=== PATIENT | female | born 2000 | race Caucasian/White ===

== ENCOUNTER 2019-03-06 11:54 | Emergency (ER) | payer OTHER ==
--- NOTE | 2019-03-06 12:19 | ED ---
Complex/Multi-Sys Presentation - HPI Summary HPI Summary: Patient is a 18 y/o F presenting to ED with complaints of left anterior chest pain, headaches, temporary blindness, dizziness, vomiting, SOB. Chest pain is characterized as sharp and onset this morning. She states that the chest pain has dropped in severity since onset, patient rates current chest pain severity 4 /10. Deep breaths aggravate chest pain. She denies previous episodes of chest pain. She also reports PMHx of migraines and TBI at age 11. She states that she has been having 5-10 minute episodes of intense headaches in addition to temporary blindness, dizziness, and vomiting. She states that her migraine episodes have been more intense and shorter than previous episodes and also notes that she has not previously had vomiting with migraines. PETERSON severity earlier today is rated 9/10, at present 5/10. Patient states that she has tried multiple medications for her migraines but states that the side effects were too severe and as such she does not take any medications for migraines. She reports that last Head CT was at age 11. She reports no blindness at present. LNMP was 02/16/19, patient notes that she takes control Nisa. No PSHx, no smoking cigarettes, no drug usage, no alcohol usage, no FMHx of diabetes. She declines medications for migraines, states that she only wants to be tested and treated for her cardiac issues. Home medications and allergies are reviewed. Patient is present with male agency legal counsel. - History Of Current Complaint Chief Complaint: EDDizziness Time Seen by Provider: 03/06/19 12:01 Hx Obtained From: Patient Onset/Duration: Lasting Hours - chest pain onset this morning, Still Present - chest pain, headache, Resolved - blindness Timing: Intermittent, Lasting: - episodes of PETERSON last 5-10 minutes, Hours - chest pain onset this morning Severity Currently: Moderate - chest pain 4/10 at present, PETERSON 5/10 Severity Initially: Severe - PETERSON rated 9/10 Location: Pain At: - chest, head Character: Migraine Aggravating Factor(s): deep breaths aggravate chest pain Alleviating Factor(s): nothing Associated Signs And Symptoms: Positive: Dizziness, SOB, Chest Pain - left anterior, Vomiting, Other - temporary blindness, headache - Allergies/Home Medications Allergies/Adverse Reactions: Allergies Allergy/AdvReac Type Severity Reaction Status Date / Time No Known Allergies Allergy Verified 03/06/19 12:00 Home Medications: Home Medications Nisa 28 Tablet 1 tab PO DAILY 03/06/19 [History Confirmed 03/06/19] PMH/Surg Hx/FS Hx/Imm Hx Sensory History: Denies: Hx Legally Blind, Hx Deafness Opthamlomology History: Denies: Hx Legally Blind EENT History: Denies: Hx Deafness Neurological History: Reports: Hx Migraine, Other Neuro Impairments/Disorders - Hx of TBI age 11 - Surgical History Surgery Procedure, Year, and Place: on 03/06/19, patient reports no PSHx Infectious Disease History: No Infectious Disease History: Denies: Traveled Outside the [place] in Last 30 Days - Family History Known Family History: Negative: Diabetes - Social History Alcohol Use: None Substance Use Type: Reports: None Smoking Status (MU): Never Smoked Tobacco Review of Systems ENT: Other - POSITIVE - TEMPORARY BLINDNESS Positive: Chest Pain Positive: Shortness Of Breath Positive: Vomiting Neurological: Other - POSITIVE - DIZZINESS Positive: Headache All Other Systems Reviewed And Are Negative: Yes Physical Exam - Summary Physical Exam Summary: VITAL SIGNS: Reviewed. GENERAL: Patient is a well-developed and nourished female who is lying comfortable in the stretcher. Patient is not in any acute respiratory distress. HEAD AND FACE: No signs of trauma. No ecchymosis, hematomas or skull depressions. No sinus tenderness. EYES: PERRLA, EOMI x 2, No injected conjunctiva, no nystagmus. EARS: Hearing grossly intact. Ear canals and tympanic membranes are within normal limits. MOUTH: Oropharynx within normal limits. NECK: Supple, trachea is midline, no adenopathy, no JVD, no carotid bruit, no c- spine tenderness, neck with full ROM. CHEST: Symmetric, chest pain is reproducible LUNGS: Clear to auscultation bilaterally. No wheezing or crackles. CVS: Regular rate and rhythm, S1 and S2 present, no murmurs or gallops appreciated. ABDOMEN: Soft, non-tender. No signs of distention. No rebound no guarding, and no masses palpated. Bowel sounds are normal. EXTREMITIES: FROM in all major joints, no edema, no cyanosis or clubbing. NEURO: Alert and oriented x 3. No acute neurological deficits. Speech is normal and follows commands. SKIN: Dry and warm Triage Information Reviewed: Yes Vital Signs On Initial Exam: Initial Vitals Temp Pulse Resp BP Pulse Ox 99.4 F 81 16 135/84 99 03/06/19 11:56 03/06/19 11:56 03/06/19 11:56 03/06/19 11:56 03/06/19 11:56 Vital Signs Reviewed: Yes Diagnostics - Vital Signs Vital Signs Temp Pulse Resp BP Pulse Ox 03/06/19 11:56 99.4 F 81 16 135/84 99 - Laboratory Result Diagrams: 03/06/19 12:23 03/06/19 12:23 Lab Statement: Any lab studies that have been ordered have been reviewed, and results considered in the medical decision making process. - Radiology chest x-ray Radiology Interpretation Completed By: Radiologist Summary of Radiographic Findings: IMPRESSION: #. No evidence for acute intrathoracic disease. THIS REPORT WAS REVIEWED BY DR. HENAO. - EKG 1229 Cardiac Rate: NL - rate of 66 BPM EKG Rhythm: Sinus Rhythm Summary of EKG Findings: EKG showed sinus rhythm with rate of 66 BPM, no ST elevation. Re-Evaluation - Re-Evaluation First Eval Re-Evaluation Time: 13:50 Comment: Results of labs and tests were discussed with patient. She was instructed to return to the emergency department if she develops any other symptom. The patient understands and agrees. All her questions were answered appropriately and she has no further concerns. Complex Multi-Symp Course/Dx Assessment/Plan: Patient is a 18-year-old female who presents to the emergency room with a chief complaint of having migraine headache and chest pain. However , the patient doesnt want any medications for the migraine headache and she only wants to be checked for the chest pain. Blood work without any significant abnormality, beta hCG is negative. . A chest x-ray impression: No evidence for acute intrathoracic disease. In the ED course the patient was given normal saline and toradol for the pain. After medications the symptoms have improved. The heart score is equal to 0. Therefore I have no suspicion for acute coronary syndrome. I do not suspect for the patient to have pulmonary embolus since the patient is not tachycardic or hypoxic. Therefore the patient was discharged home with follow-up with primary care physician. She was instructed to return to the emergency department if she develops any other symptom. The patient understands and agrees. All her questions were answered appropriately and she has no further concerns. - Diagnoses Provider Diagnoses: Atypical chest pain, Migraine headache Discharge - Sign-Out/Discharge Documenting (check all that apply): Patient Departure - DISCHARGE Patient Received Moderate/Deep Sedation with Procedure: No - Discharge Plan Condition: Stable Disposition: HOME Patient Education Materials: Chest Pain (ED), Migraine Headache (ED) Referrals: [facility] [Z.BUSINESS, APPLICATION, OTHER] - 3 Days Additional Instructions: RETURN TO ED FOR ANY NEW OR WORSENING SYMPTOMS. FOLLOW UP WITH YOUR PRIMARY CARE PHYSICIAN WITHIN THREE DAYS - Billing Disposition and Condition Condition: STABLE Disposition: Home - Attestation Statements Document Initiated by Scribe: Yes Documenting Scribe: TU NUÑEZ Provider For Whom Scribe is Documenting (Include Credential): JAX HENAO MD Scribe Attestation: TU Walters, scribed for JAX HENAO MD on 03/06/19 at 2110. Scribe Documentation Reviewed: Yes Provider Attestation: The documentation as recorded by the TU alonzo accurately reflects the service I personally performed and the decisions made by JAX mcmillan MD Status of Scribe Document: Viewed
[2019-03-06 12:30] LABS: ABS Basophils 0 10^3/ul (0-0.2); ABS Eosinophils 0 10^3/ul (0-0.6); ABS Lymphocytes 1.4 10^3/ul (1.0-4.8); ABS Monocytes 0.3 10^3/ul (0-0.8); ABS Neutrophils 6.2 10^3/ul (1.5-7.7); ABS Nucleated RBC 0 10^3/ul; Eosinophil % 0.3 %; Hematocrit 39 % (33-41); Hemoglobin 12.7 g/dL (12.0-16.0); Lymphocyte % 17.6 %; Mean Corpuscular HGB Conc 33 g/dL (31-36); Mean Corpuscular Hemoglobin 29 pg (27-31); Mean Corpuscular Volume 87 fL (80-97); Mean Platelet Volume 9.6 fL (7.4-10.4); Nucleated Red Blood Cells % 0; Platelet Count 231 10^3/uL (150-450); Red Blood Count 4.43 10^6 /uL (3.70-4.87); Red Cell Distribution Width 14 % (10.5-15)
[2019-03-06 12:47] LABS: ALT 15 U/L (7-52); AST 13 U/L (13-39); Albumin 3.8 g/dL (3.2-5.2); Albumin/Globulin Ratio 1.4 (1-3); Alkaline Phosphatase 47 U/L (34-104); Anion Gap 4 mmol/L (2-11); BUN/Creatinine Ratio 18.5 (8-20); Blood Urea Nitrogen 12 mg/dL (6-24); CO2 Carbon Dioxide 24 mmol/L (22-32); Chloride 108 mmol/L (101-111); Creatine Kinase 31 U/L (10-223); EGFR African American 142.1 (>60); EGFR Non-African American 117.4 (>60); Globulin 2.8 g/dL (2-4); Glucose 86 mg/dL (70-100); Magnesium 1.9 mg/dL (1.9-2.7); Sodium 136 mmol/L (135-145); Total Protein 6.6 g/dL (6.4-8.9)
[2019-03-06 12:52] LABS: CKMB ng/mL 0.3 ng/mL (0.6-6.3)
[2019-03-06 12:55] LABS: HCG Pregnancy < 0.60 mIU/mL
[2019-03-06] MEDS ORDERED: NS 0.9% 1000 ML** 1,000 ML IV ONE (13:04)
[2019-03-06] MEDS ORDERED: Ketorolac INJ* 30 MG/ML 1 ML VIAL IV PUSH ONE (13:04)
[2019-03-06 13:26] LABS: TSH (Thyroid Stimulating Horm) 1.34 mcIU/mL (0.34-5.60)
[2019-03-06 15:03] VITALS: BP 112/54
== END 2019-03-06 15:05 | disposition home or self-care (01) ==
LOC: ED 11:54
DX: R07.89 Other chest pain (principal); G43.909 Migraine, unspecified, not intractable, without status migrainosus; Z87.820 Personal history of traumatic brain injury
CPT/HCPCS: 36415; 71045; 80053; 82550; 82553; 83605; 83735; 83880; 84443; 84484; 84702; 85025; 85730; 93005; 96361; 96374; 99282; J1885